=== PATIENT | male | born 1955 | race Caucasian/White ===

== ENCOUNTER 2020-03-14 15:56 | Emergency (ER) | payer OTHER ==
[2020-03-14 16:35] LABS: ABSOLUTE EOSINOPHILS # (AUTO) 0.2 10^3/uL (0.0-0.6); ABSOLUTE LYMPHOCYTES (AUTO) 0.9 10^3/uL (0.5-4.7); ABSOLUTE MONOCYTES (AUTO) 0.6 10^3/uL (0.1-1.4); ABSOLUTE NEUT (AUTO) 5.5 10^3/uL (1.7-8.2); BASOPHILS % (AUTO) 0.3 % (0-2); EOSINOPHILS % (AUTO) 2.2 % (0-6); HEMATOCRIT 39.5 % (37.9-51.0); HEMOGLOBIN 13.6 g/dL (13.5-17.0); LYMPHOCYTES % (AUTO) 13.1 % (13-45); MEAN CORPUSCULAR HEMOGLOBIN 29.7 pg (27.0-33.4); MEAN CORPUSCULAR HGB CONC 34.5 g/dL (32.0-36.0); MEAN CORPUSCULAR VOLUME 86 fl (80-97); MONOCYTES % (AUTO) 8.8 % (3-13); PLATELET COUNT 234 10^3/uL (150-450); RED CELL DISTRIBUTION WIDTH 13.3 % (11.5-14.0); SEGMENTED NEUTROPHILS % (AUTO) 75.6 % (42-78); TOTAL CELLS COUNTED % (AUTO) 100 %; WHITE BLOOD COUNT 7.2 10^3/uL (4.0-10.5)
--- OUTSIDE RECORDS SUMMARY | 2020-03-14 16:41 | XMS REPORT ---
:1955 Author [facility] [address] [place] [address] Care Team Providers Name Role Phone Neto Sanders Primary Care Physician Unavailable Violette Sanders MD Attending Clinician Unavailable Mary CARSON Attending Clinician Unavailable Allergies, Adverse Reactions, Alerts This patient has no known allergies or adverse reactions. Medications Ordered Filled Start Stop Current Ordering Indication Dosage Frequency Signature Comments Components Medication Medication Date Date Medication? Clinician (SIG) Name Name Terazosin No Neto Starkey Terazosin HCl - 5 MG 11-14 Tommy CARSON HCl - 5 MG Oral 08:51: Oral Capsule 42 Capsule TAKE 1 CAPSULE BY MOUTH ONCE DAILY Quantity: 90 Refills: 0 Neto Sanders MD Start : 0Active traZODone Yes Neto Starkey traZODone HCl - 50 MG 06-06 Tommy CARSON HCl - 50 Oral Tablet 12:50: MG Oral 01 Tablet Take 1 tablet by mouth at bedtime Quantity: 90 Refills: 3 Neto Sanders MD Start : 0Active Vitamin Yes Harrison 1 QD Vitamin B-12 1000 11-19 Mary CARSON B-12 1000 MCG Oral 00:00: MCG Oral Tablet 00 Tablet TAKE 1 TABLET DAILY Quantity: 30 Refills: 6 Harrison Hernandez MD Start : 9Active CPAP Yes Alexx CPAP - Restelli PLEASE 00:00: D.O. DECREASE 00 CPAP PRESSURE TO 16 CM. DOWNLOAD 1 MONTH Quantity: 1 Refills: 0 Restelli D.O.Alexx Start : 9Active Escitalopra Yes Neto Starkey Escitalop r m Oxalate 2-25 Tommy CARSON am Oxalate 10 MG Oral 00:00: 10 MG Oral Tablet 00 Tablet TAKE 1 TABLET BY MOUTH EVERY DAY Quantity: 90 Refills: 3 Neto Sanders MD Start : 9Active Escitalopra No Neto Starkey Escitalop r m Oxalate 04-19 Tommy CARSON am Oxalate 10 MG Oral 00:00: 10 MG Oral Tablet 00 Tablet TAKE 1 TABLET BY MOUTH EVERY DAY Quantity: 90 Refills: 3 Neto Sanders MD Start : 9Active Celecoxib Yes Neto Starkey Q0.5D Celecoxib 200 MG Oral 08-20 Tommy CARSON 200 MG Capsule 00:00: Oral 00 Capsule TAKE 1 CAPSULE TWICE DAILY. Quantity: 180 Refills: 3 Neto Sanders MD Start : 8Active Celecoxib No Neto Starkey Q0.5D Celecoxib 200 MG Oral 08-20 Tommy CARSON 200 MG Capsule 00:00: Oral 00 Capsule TAKE 1 CAPSULE TWICE DAILY. Quantity: 180 Refills: 3 Neto Sanders MD Start : 8Active Diclofenac Yes Neto Starkey Diclofenac Sodium 1 % 08-20 Tommy CARSON Sodium 1 % GEL 00:00: GEL APPLY 00 1 INCH FOUR TIMES DAILY NEEDED . Quantity: 2 Refills: 6 Neto Sanders MD Start : 8Active 100 GM Tube Fluorouraci Yes Neto Starkey Q0.5D Fluoroura c l 5 % 5-02 Tommy CARSON il 5 % External 00:00: External Cream 00 Cream APPLY A THIN LAYER TO AFFECTED AREA(S) TWICE DAILY. Quantity: 1 Refills: 0 Neto Sanders MD Start : 25-Jun-2015 Active 40 GM Tube buPROPion 2014-02 Yes Neto Starkey QD buPROPion HCl ER (XL) 03-29 Tommy CARSON HCl ER 300 MG Oral 00:00: (XL) 300 Tablet 00 MG Oral Extended Tablet Release 24 Extended Hour Release 24 Hour TAKE 1 TABLET DAILY DIRECTED. Quantity: 90 Refills: 3 Neto Sanders MD Start : 26-Jan-2015 Active buPROPion 2014-02 No Neto Starkey QD buPROPion HCl ER (XL) 03-29 Tommy CARSON HCl ER 300 MG Oral 00:00: (XL) 300 Tablet 00 MG Oral Extended Tablet Release 24 Extended Hour Release 24 Hour TAKE 1 TABLET DAILY DIRECTED. Quantity: 90 Refills: 3 Neto Sanders MD Start : 26-Jan-2015 Active Terazosin Yes Neto Starkey Terazosin HCl - 5 MG 06-15 Tommy CARSON HCl - 5 MG Oral 00:00: Oral Capsule 00 Capsule TAKE 1 CAPSULE BY MOUTH ONCE DAILY Quantity: 90 Refills: 3 Neto Sanders MD Start : 9Active Terazosin No Neto Starkey Terazosin HCl - 5 MG 06-15 Tommy CARSON HCl - 5 MG Oral 00:00: Oral Capsule 00 Capsule TAKE 1 CAPSULE BY MOUTH ONCE DAILY Quantity: 30 Refills: 6 Neto Sanders MD Start : 9Active Ramipril 10 Yes Neto Starkey Ramipril MG Oral - Tommy CARSON 10 MG Oral Capsule 00:00: Capsule 00 TAKE ONE CAPSULE BY MOUTH ONCE DAILY Quantity: 90 Refills: 3 Neto Sanders MD Start : 9Active Problems Condition Condition Condition Status Onset Resolution Last Treatin g Comments Name Details Category Date Date Treatment Clinician Date 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 Nocturia Nocturia Problem Active Hypogonadis Hypogonadis Problem Active m male m male Esophageal Esophageal Problem Active reflux reflux Actinic Actinic Problem Active keratosis keratosis Ankle pain, Ankle pain, Problem Active left left Abnormal Abnormal Problem Active electrocard electrocard iogram iogram Obstructive Obstructive Problem Active sleep apnea sleep apnea Memory loss Memory loss Problem Active Bladder Bladder Problem Active outlet outlet obstruction obstruction Episodic Episodic Problem Active mood mood disorder disorder Exposure to Exposure to Problem Inactiv COVID-19 COVID-19 e virus virus Benign Benign Problem Active hypertensiv hypertensiv e heart e heart disease disease without without congestive congestive heart heart failure failure Chronic Chronic Problem Active viral viral hepatitis C hepatitis C Insomnia Insomnia Problem Active Osteoarthri Osteoarthri Problem Active tis tis Procedures Procedure Date / Time Performed Performing Clinician Liz starkey CBC 2020-03-08 00:00:00 CMP(Complete Metabolic Panel) 2020-03-08 00:00:00 L - HCV RT-PCR, Quant (Graph) 2020-03-08 00:00:00 Procedures not documented Results Test Description Test Time Test Comments Text Results Atomic Results Result Comments CBC 2020-03-08 09:45:00 Test Item Value Reference Range Comments White Blood Cell (test code = White Blood Cell) 5.3 K/uL 3.5-11.1 Red Blood Cell (test code = Red Blood Cell) 4.86 {M/uL} 4.27 -5.49 Hemoglobin (test code = Hemoglobin) 14.2 g/dL 12.9-16.1 Hematocrit (test code = Hematocrit) 42 % 38-47 Mean Corpuscular Volume (test code = Mean Corpuscular Volume) 86 .4 fL 79.0-95.0 Mean Corpuscular Hemoglobin (test code = Mean Corpuscular 29.2 p g/mL 27.0-33.0 Hemoglobin) Mean Corpuscular Hemoglobin Concentration (test code = Mean 33.8 g/dL 33.5-35.5 Corpuscular Hemoglobin Concentration) Red Cell Distribution Width (test code = Red Cell 12.4 % 12.0-15.0 Distribution Width) Platelet (test code = Platelet) 233 K/uL 130-353 Mean Platelet Volume (test code = Mean Platelet Volume) 9.1 fL 7.5-10.7 Neutrophil Count, absolute (test code = Neutrophil Count, 2.8 K/ uL 1.9-7.2 absolute) Neutrophil Count Percentage (test code = Neutrophil Count 52.8 % 43.0-72.0 Percentage) Lymphocyte Count, absolute (test code = Lymphocyte Count, 1.5 K/ uL 1.1-2.7 absolute) Lymphocyte Count Percentage (test code = Lymphocyte Count 28.8 % 17.0-44.0 Percentage) Monocyte Count, absolute (test code = Monocyte Count, 0.7 K/uL 0.3-0.8 absolute) Monocyte Count Percentage (test code = Monocyte Count 13.6 % 4.5-12.4 Percentage) Eosinophil Count, absolute (test code = Eosinophil Count, 0.2 K/ uL 0.0-0.5 absolute) Eosinophil Count Percentage (test code = Eosinophil Count 3.8 % 0.7-7.8 Percentage) Basophil Count, absolute (test code = Basophil Count, 0.0 K/uL 0.0-0.1 absolute) Basophil Count Percentage (test code = Basophil Count 0.6 % 0.2-1.1 Percentage) Nucleated Red Blood Cell, absolute (test code = Nucleated Re d 0.00 K/uL 0.00-0.00 Blood Cell, absolute) Nucleated Red Blood Cell, percentage (test code = Nucleated 0.00 % 0.00-0.00 Red Blood Cell, percentage) CMP(Complete Metabolic Panel)2020-03-08 09:45:00 Test Item Value Reference Range Comments Glucose (test code = Glucose) 108 mg/dL 74-106 Sodium (test code = Sodium) 140 mmol/L 135-145 Potassium (test code = Potassium) 4.2 mmol/L 3.5-5.3 Chloride (test code = Chloride) 107 mmol/L 98-107 CO2 (test code = CO2) 28 mmol/L 22-30 Creatinine, serum (test code = Creatinine, serum) 0.90 mg/dL 0.10-1.25 Glomerular Filtration Rate (test code = >60 >60 Glomerular Filtration Rate) Glomerular Filtration Rate AA (test code = >60 >60 Glomerular Filtration Rate AA) Blood Urea Nitrogen (test code = Blood Urea 12 mg/dL 9-20 Nitrogen) Calcium (test code = Calcium) 8.9 mg/dL 8.4-10.5 Phosphorus (test code = Phosphorus) 2.7 mg/dL 2.5-4.5 Total Protein (test code = Total Protein) 7.3 g/dL 6.3-8. 2 Albumin (test code = 60465-8) 4.3 g/dL 3.5-5.0 Total Bilirubin (test code = Total Bilirubin) 0.2 mg/dL 0. 2-1.3 Bilirubin, unconj (test code = Bilirubin, unconj) 0.2 mg/dL 0.0-1.1 Bilirubin, Direct (test code = Bilirubin, Direct) 0.0 mg/dL 0.0-0.4 Alkaline Phosphatase (test code = Alkaline 60 U/L 20-15 0 Phosphatase) Alanine Transaminase (test code = Alanine 32 U/L 0-50 Transaminase) Aspartate Aminotransferase (test code = Aspartate 24 U/L 3-36 Aminotransferase) L - HCV RT-PCR, Quant (Graph)2020-03-08 09:44:00 Test Item Value Reference Range Comments Hepatitis C Quantitation HCV Not Detected (test code = 85133-2) Comment: (test code = Comment The quanti tative range of Comment:) this assay is 15 IU/mL to 100million IU/mL . [facility] performed at: [BN] [address], [address], , Frit Mixer: NICOLLE Corbett-CoV-2 RNA Resp Ql [id number] 00:00:00 Test Item Value Reference Range Comments SARS-CoV-2 RNA Resp Ql Detected [place] Covid [facility] Case ID: ELIAS+probe (test code = [id number] 45216-9) L - [id number] 09:07:00 Test Item Value Reference Range Comments SARS-CoV-2, ELIAS; Detected Not Detected This test was d eveloped and its Abnormal (test code = performanc e characteristicsdetermined 53561-7) by [facility]. This test has not beenFDA dilip red or approved. This test has been au thorized byA under an Emergency Use Authorization (EUA). This testis only authorized for the duration of time the declarationthat circumstances ex ist justifying the authorization of the emergency use of in vitro diagnos tic tests fordetection of SARS-CoV-2 vi asha and/or diagnosis of COVID-19infec tion under section 564(b)(1) of the Act, 21 U.S.C.360bbb-3(b )(1), unless the authorization is terminated orrevoked sooner. When hill gnostic testing is negative, thepos sibility of a false negative result should be consideredin the context of a patient's recent exposures and th epresence of clinical signs and sympto ms consistent withCOVID-19. An individual without symptoms of COVI D-19 andwho is not shedding SARS-Co V-2 virus would expect to have anegativ e (not detected) result in this a ssay. [facility] performed at: [BN] [address], [address], , Frit Mixer: NICOLLE Corbett-CoV-2 RNA Resp Ql [id number] 00:00:00 Test Item Value Reference Range Comments SARS-CoV-2 RNA Resp Ql Detected [place] Covid [facility] Case ID: ELIAS+probe (test code = [id number]) L - [id number] 10:46:00 Test Item Value Reference Range Comments SARS-CoV-2, ELIAS; Detected Not Detected Testing was per formed using the Abnormal (test code = mikhail(R) S ARS-CoV-2 test.This test was 52548-8) developed and it s performance characteristicsd etermined by [employer] Th is test has not beenFDA cleared or approved. This test has been authori zed byFDA under an Emergency Use Au thorization (EUA). This testis only authorized for the duration of time the declarationthat circumstances ex ist justifying the authorization of the emergency use of in vitro diagnos tic tests fordetection of SARS-CoV-2 vi asha and/or diagnosis of COVID-19infec tion under section 564(b)(1) of the Act, 21 U.S.C.360bbb-3(b )(1), unless the authorization is terminated orrevoked sooner. When hill gnostic testing is negative, thepos sibility of a false negative result should be consideredin the context of a patient's recent exposures and th epresence of clinical signs and sympto ms consistent withCOVID-19. An individual without symptoms of COVI D-19 andwho is not shedding SARS-Co V-2 virus would expect to have anegativ e (not detected) result in this a ssay. [facility] performed at: [BN] [address], [address], , Frit Mixer: Jose L Dow MDTest(s) SARS-CoV-2, ELIAS called to [facility] on 08/23/2019 at 15:04 EST Assessments Condition Name Status Diagnosis Date Treating Clinici an Benign hypertensive heart disease without Active congestive heart failure Insomnia Active Obstructive sleep apnea Active Osteoarthritis Active Episodic mood disorder Active Esophageal reflux Active Chronic viral hepatitis C Active Benign hypertensive heart disease without Active congestive heart failure Obstructive sleep apnea Active Episodic mood disorder Active Bladder outlet obstruction Active Chronic viral hepatitis C Active STORMY on CPAP Active Insomnia Active Benign essential hypertension Active Cough Active Benign hypertensive heart disease without Active congestive heart failure Insomnia Active Obstructive sleep apnea Active Osteoarthritis Active Episodic mood disorder Active Bladder outlet obstruction Active Benign hypertensive heart disease without Active congestive heart failure Insomnia Active Obstructive sleep apnea Active Osteoarthritis Active Episodic mood disorder Active Bladder outlet obstruction Active Chronic viral hepatitis C Active Benign hypertensive heart disease without Active congestive heart failure Insomnia Active Obstructive sleep apnea Active Osteoarthritis Active Chronic viral hepatitis C Active Benign hypertensive heart disease without Active congestive heart failure Obstructive sleep apnea Active Episodic mood disorder Active Chronic viral hepatitis C Active Encounters Start End Encounter Admission Attending Care Care Encounter Date/Time Date/Time Type Type Clinicians Facility Department ID 2020-03-08 2020-03-08 Appointment Tommy [facility] [id number] 09:15:00 09:15:00 ; Neto Sanders MD 2019-09-05 2019-09-05 Appointment Tommy [facility] [id number] 09:15:00 09:15:00 ; Neto Sanders MD 2019-03-07 2019-03-07 [facility] [id number] 08:30:00 08:30:00 ; Neto Sanders MD 2019-01-24 2019-01-24 Appointment [facility] [id number] 14:00:00 14:00:00 ; Alexx Pagan D.O. 2018-12-30 2018-12-30 [facility] [id number] 14:45:00 14:45:00 ; Harrison Hernandez MD 2018-12-08 2018-12-08 Appointment [facility] [id number] 16:00:00 16:00:00 ; Erin Cortez MD 2018-12-08 2018-12-08 Appointment [facility] [id number] 15:30:00 15:30:00 ; ERIN NESBITT 2018-11-16 2018-11-16 [facility] [id number] 11:00:00 11:00:00 ; Harrison Hernandez MD 2018-08-27 2018-08-27 [facility] [id number] 09:30:00 09:30:00 ; Neto Sanders MD 2018-08-27 2018-08-27 Appointment [facility] [id number] 08:55:00 08:55:00 ; KEN Bansal 2018-07-20 2018-07-20 Appointment [facility] [id number] 14:15:00 14:15:00 ; Molly zheng, KEN 2018-07-20 2018-07-20 Appointment [facility] [id number] 13:30:00 13:30:00 ; Alexx Pagan D.O. 2018-04-22 2018-04-22 Appointment Tommy [facility] [id number] 10:00:00 10:00:00 ; Neto Sanders MD 2018-02-25 2018-02-25 Appointment Tommy [facility] [id number] 10:15:00 10:15:00 ; Neto Sadners MD 2017-10-01 2017-10-01 Appointment [facility] [id number] 20:45:00 20:45:00 ; sleep, lab Immunizations Ordered Immunization Filled Immunization Date Status Commen ts Refusal Reason Name Name Prevnar 13 2017-08-20 Completed Intramuscular 15:30:00 Suspension Influenza 2015-12-24 Completed 00:00:00 Influenza 2014-12-15 Completed 00:00:00 Afluria Intramuscular 2014-12-06 Completed Suspension 00:00:00 Afluria Intramuscular 2013-12-22 Completed Suspension 00:00:00 Influenza 2012-01-03 Completed 00:00:00 Zoster (Zostavax) 2012-01-03 Completed 00:00:00 Influenza 2009-12-14 Completed 00:00:00 Influenza 2009-02-06 Completed 00:00:00 Influenza A (H1N1) 2008-12-08 Completed Monoval Vac SUSP 00:00:00 Influenza 2007-12-10 Completed 00:00:00 Pneumococcal 2006-11-18 Completed polysaccharide 00:00:00 vaccine, 23 valent Social History Smoking Status Start Date Stop Date Never smoked tobacco (finding) Vital Signs Vital Name Observation Time Observation Value Comments Systolic blood pressure 2020-03-08 09:18:00 148 mm[Hg] Diastolic blood pressure 2020-03-08 09:18:00 84 mm[Hg] Body height 2020-03-08 09:18:00 67 [in_us] Weight 2020-03-08 09:18:00 249 [lb_av] Body mass index (BMI) [Ratio] 2020-03-08 09:18:00 39 kg/m2 Body temperature 2020-03-08 09:18:00 96.9 [degF] Heart Rate 2020-03-08 09:18:00 73 /min O2 SAT 2020-03-08 09:18:00 97 % Source: RA Heart Rate 2019-09-05 09:06:00 79 /min O2 SAT 2019-09-05 09:06:00 95 % Source: RA Systolic blood pressure 2019-09-05 09:06:00 152 mm[Hg] Diastolic blood pressure 2019-09-05 09:06:00 82 mm[Hg] Body height 2019-09-05 09:06:00 67 [in_us] Weight 2019-09-05 09:06:00 244 [lb_av] Body mass index (BMI) [Ratio] 2019-09-05 09:06:00 38.22 kg/m2 Body temperature 2019-09-05 09:06:00 97.9 [degF] Hospital Discharge Instructions NameDatesDetailsInstructions not documented
[2020-03-14 16:52] LABS: ALBUMIN 3.8 g/dL (3.5-5.0); ALKALINE PHOSPHATASE 50 U/L (38-126); ANION GAP 5 (5-19); ASPARTATE AMINO TRANSFERASE 28 U/L (17-59); BILIRUBIN,DIRECT 0.2 mg/dL (0.0-0.4); BILIRUBIN,TOTAL 0.3 mg/dL (0.2-1.3); BLOOD UREA NITROGEN 14 mg/dL (7-20); CALCIUM 8.9 mg/dL (8.4-10.2); CARBON DIOXIDE 25 mmol/L (22-30); CHLORIDE 106 mmol/L (98-107); CREATINE KINASE 395 U/L (55-170); GLUCOSE 174 mg/dL (75-110); TOTAL PROTEIN 6.8 g/dL (6.3-8.2)
--- NOTE | 2020-03-14 17:06 | ER Document Report ---
ED General - General Chief Complaint: Chest Pain Stated Complaint: CHEST PAIN Time Seen by Provider: 03/14/20 17:06 Primary Care Provider: NIECY ZAPATA MD [Primary Care Provider] - Follow up as needed TRAVEL OUTSIDE OF THE [place] IN LAST 30 DAYS: No - HPI Notes: 64-year-old male presents with chest pain. Patient states that this afternoon he was working on a heating system, repairing it. He states that one of the valves blew which was a very stressful incident for him, he then developed chest pressure, this is around 1415. He reports that it pressure and squeezing sen sation in the center of his chest, did not radiate. He had some shortness of breath. No nausea. Present with exertion and at rest. He received 3 to 4 mg aspirin and nitroglycerin with EMS. He did report reduction of pain with nitro. Patient denies a previous cardiac history. He does have a history of hypertension and takes ramipril. He does state that he had Covid in June, he has had the first dose of the Covid vaccine. He reports minimal chest pressure currently. - Related Data Allergies/Adverse Reactions: No Known Allergies Allergy (Verified 09/21/15 07:11) Past Medical History - General Information source: Patient - Social History Smoking Status: Unknown if Ever Smoked Frequency of alcohol use: None Drug Abuse: None Family History: Reviewed & Not Pertinent - Past Medical History Cardiac Medical History: Reports: Hx Hypertension Denies: Hx Heart Attack Pulmonary Medical History: Denies: Hx Asthma, Hx Bronchitis, Hx COPD, Hx Pneumonia Neurological Medical History: Denies: Hx Cerebrovascular Accident, Hx Seizures Musculoskeletal Medical History: Reports Hx Arthritis Past Surgical History: Reports: Hx Nose Surgery - Immunizations Hx Diphtheria, Pertussis, Tetanus Vaccination: Yes Hx Pneumococcal Vaccination: 02/24/08 Review of Systems - Review of Systems Constitutional: denies: Chills, Fever EENT: No symptoms reported Cardiovascular: Chest pain Respiratory: denies: Cough, Short of breath - denies currently Gastrointestinal: denies: Abdominal pain, Diarrhea, Nausea, Vomiting Genitourinary: No symptoms reported Male Genitourinary: No symptoms reported Musculoskeletal: denies: Back pain Skin: No symptoms reported Hematologic/Lymphatic: No symptoms reported Neurological/Psychological: No symptoms reported Physical Exam - Vital signs Vitals: Resp 18 03/14/20 16:13 - General General appearance: Appears well, Alert In distress: None - HEENT Head: Normocephalic, Atraumatic Extraocular movements intact: Yes Pupils: PERRL - Respiratory Chest status: Nontender Breath sounds: Normal - Cardiovascular Rhythm: Regular Heart sounds: Normal auscultation Pulses: Normal: Radial Normal capillary refill: Yes - Abdominal Inspection: Obese Tenderness: Nontender - Extremities General lower extremity: No: Edema - Neurological Neuro grossly intact: Yes Cognition: Normal Orientation: AAOx4 - Psychological Associated symptoms: Normal affect - Skin Skin Temperature: Warm Course - Re-evaluation Re-evalutation: 64-year-old male presents with episode of chest pressure, exertional in nature. He is 64, history of hypertension, obese, no known history of heart disease. Pain is been rated by nitro. He is currently hemodynamically stable. Heart RRR, lungs are clear, no peripheral edema. His EKG does show T wave inversions, no EKG is available for comparison. Based on his story, I am suspicious for acute coronary syndrome, NSTEMI versus unstable angina. Currently does not have STEMI on EKG. He had labs done through the triage process which does show an elevated troponin of 0.8. Patient will be started on full heparinization, will continue nitro drip. 03/14/20 18:[address] Trevino second chef for cardiology. Given that the patient has signs of NSTEMI, patient would not be able to stay here due to unavailability of the cardiac cardiac catheterization technologist. He has recommended transfer. Agrees with heparin and nitro. 03/14/20 18:50 Called [facility], no beds available for transfer 03/14/20 18:51 Called [facility], no beds available for transfer 03/14/20 18:57 Called [facility], possible may have a spot on waiting list, awaiting call back 03/14/20 19:06 Updated pt on discussion with other facilities. States CP mostly resolved, on 5mcg nitro gtt 03/14/20 19:23 Patient has been accepted to [facility] via Dr Shawn Hassan 03/14/20 20:38 Troponin has increased to 2.15, expected given his NSTEMI, he continues on heparin and nitro. He has a ready bed at [facility], awaiting transport. 03/14/20 20: Transport has arrived for patient. He is stable and appropriate to go to [facility] at this time. - Vital Signs Vital signs: Temp Pulse Resp BP Pulse Ox 98.4 F 17 143/91 H 95 03/14/20 20:34 03/14/20 20:31 03/14/20 20:31 03/14/20 20:31 - Laboratory Results Result Diagrams: 03/14/20 16:19 03/14/20 16:19 Laboratory Results Interpreted: 03/14/20 03/14/20 03/14/20 16:19 16:19 20:01 Sodium 136.1 L Glucose 174 H Creatine Kinase 395 H CK-MB (CK-2) 9.44 H Urine Protein 30 H Critical Laboratory Results Reviewed: Yes Attending or Supervising Physician who Reviewed Labs: NIMA OSBORN - Radiology Results Critical Radiology Results Reviewed: No Critical Results - EKG Interpretation by Me Additional EKG results interpreted by me: EKG is interpreted by me. Sinus rhythm, rate 72. QRS 104. QTc within normal limits. There are T wave inversions in V2, V3. No ST segment elevation. Incomplete right bundle. No previous available for comparison. 03/14/20 18:28 Repeat EKG performed. Sinus rhythm, rate 74. T wave inversions again noted in V2 and V3. There is some T wave flattening in V5 and V6. No STEMI. Critical Care Note - Critical Care Note Total time excluding time spent on procedures (mins): 40 - Critical care time spent with direct patient care, acute condition that is life-threatening, multiple reassessments, coordination of care with specialists and tertiary care center in relation to diagnosis of NSTEMI. Discharge - Discharge Clinical Impression: NSTEMI (non-ST elevated myocardial infarction) Disposition: [facility] Referrals: NIECY ZAPATA MD [Primary Care Provider] - Follow up as needed
[2020-03-14 17:23] LABS: CREATINE KINASE MB 9.44 ng/mL (<4.55)
[2020-03-14 17:24] LABS: TROPONIN I 0.817 ng/mL
[2020-03-14 17:34] LABS: INTERNATIONAL RATION (INR) 0.99; PROTHROMBIN TIME 13.3 SEC (11.4-15.4)
[2020-03-14 17:35] LABS: PARTIAL THROMBOPLASTIN TIME 28.1 SEC (23.5-35.8)
[2020-03-14] MEDS ORDERED: NITROGLYCERIN/D5W 50 MG/250 ML RTUINJ IV PRN (18:10)
[2020-03-14] MEDS ORDERED: HEPARIN SODIUM,PORCINE/D5W 25,000 UNIT/250 ML RTUINJ IV PRN (18:11)
[2020-03-14] MEDS ORDERED: HEPARIN SOD (PORCINE) 1,000 UNIT/ML 10 ML VIAL IV ONE (18:11)
--- NOTE | 2020-03-14 18:31 | RADIOLOGY REPORT (SQ) ---
EXAM DESCRIPTION: CHEST SINGLE VIEW IMAGES COMPLETED DATE/TIME: 03/14/2020 6:24 pm REASON FOR STUDY: chest pain COMPARISON: None. EXAM PARAMETERS: NUMBER OF VIEWS: One view. TECHNIQUE: Single frontal radiographic view of the chest acquired. RADIATION DOSE: NA LIMITATIONS: None. FINDINGS: LUNGS AND PLEURA: No opacities, masses or pneumothorax. No pleural effusion. MEDIASTINUM AND HILAR STRUCTURES: No masses. Contour normal. HEART AND VASCULAR STRUCTURES: Heart normal in size. Normal vasculature. BONES: No acute findings. HARDWARE: None in the chest. OTHER: No other significant finding. IMPRESSION: NO ACUTE RADIOGRAPHIC FINDING IN THE CHEST. TECHNICAL DOCUMENTATION: JOB ID: [id number] 2010 [employer] All Rights Reserved Reading location - IP/workstation name: LC
--- NOTE | 2020-03-14 19:21 | EKG REPORT ---
SEVERITY:- ABNORMAL ECG - SINUS RHYTHM INFERIOR INFARCT, OLD DIFFUSE NONSSPECIFIC ST-T CHANGES : Confirmed by: Reynaldo Mera MD 14-Mar-2020 19:20:50
--- NOTE | 2020-03-14 19:23 | EKG REPORT ---
SEVERITY:- ABNORMAL ECG - SINUS RHYTHM PROBABLE INFERIOR INFARCT, POSSIBLE POSTERIOR RI, OLD : Confirmed by: Reynaldo Mera MD 14-Mar-2020 19:22:19
[2020-03-14 20:37] LABS: APPEARANCE,URINE CLEAR; BILIRUBIN,URINE NEGATIVE (NEGATIVE); COLOR,URINE YELLOW; GLUCOSE, URINE NEGATIVE (NEGATIVE); KETONES,URINE NEGATIVE (NEGATIVE); LEUKOCYTE ESTERASE,URINE NEGATIVE (NEGATIVE); NITRITE,URINE NEGATIVE (NEGATIVE); PROTEIN,URINE 30 mg/dL (NEGATIVE); URINE SPECIFIC GRAVITY 1.025; UROBILINOGEN,URINE NEGATIVE mg/dL (<2.0)
[2020-03-14 20:39] VITALS: BP 143/91
[2020-03-14] MEDS ORDERED: HEPARIN SOD (PORCINE) 1,000 UNIT/ML 10 ML VIAL IV PRN (21:11)
== END 2020-03-14 21:27 | disposition short-term general hospital (02) ==
LOC: ER 15:56
DX: I21.4 Non-ST elevation (NSTEMI) myocardial infarction (principal); R07.9 Chest pain, unspecified; I10 Essential (primary) hypertension; E66.9 Obesity, unspecified; Z86.16 Personal history of COVID-19
CPT/HCPCS: 93005; 99285; 96375; 96365; 36415; 82553; 82550; 85025; 85610; 85730; 80053; 81001; 84484; 83880; 71045; 93010; J1644 ×2; J3490